=== PATIENT | female | born 1975 | race Caucasian/White ===

== ENCOUNTER → 2023-06-02 | Outpatient (CLI) | payer OTHER ==
--- NOTE | 2023-06-09 20:27 | MR ---
EXAMINATION TYPE: MR ankle RT wo con DATE OF EXAM: 06/02/2023 COMPARISON: Outside radiograph 05/19/2023 HISTORY: 47-year-old female M2 5.571, Right ankle pain, swelling, and swelling for 8 months TECHNIQUE: Multiplanar, multisequence images of the right ankle were obtained without IV contrast. FINDINGS: The tibiotalar joint intact with a small posterior effusion. There is focal osseous edema within the posterior talus but no discrete fracture line seen. No acute or healing fracture is seen. Moderate sized plantar heel spur. Minimal deep sided fraying. Thickening of 5 mm. Achilles tendon images smooth delineation. There is an os trigonum without any abnormal edema. Small to moderate effusion within the posterior s ubtalar joint. There is some edema and soft tissue replacement within the sinus Tarsi noted. Tarsal tunnel is clear. Anterior extensor tendons and syndesmosis appear intact. Prominent medial sided soft tissue swelling of the ankle. Some susceptibility artifact at the anterio r colliculus of the medial malleolus suggesting prior repair as some of the superficial anterior delt oid ligament fibers. Clinically correlate. These fibers show increased signal. The deep posterior fib ers remain intact. There is thickening and a small partial-thickness split of the posterior tibial tendon extending from just behind the malleolus to the distal segment prior to its navicular insertion spanning approximat colton 3.5 cm. There is moderate tenosynovial fluid along the from malleoli are portion. Additional mild to moderate tenosynovial fluid along the other medial flexor tendons which otherwise remain intact. Spring ligament complex appears grossly intact. There is mild thickening of the ATFL suggesting prior sprain. CFL is intact. Some edema and cystic ch arabella measuring up to 8 mm along the PTFL suggesting partial tear. Mild tenosynovitis of fluid along the lateral peroneal tendons which otherwise remain intact. IMPRESSION: 1. Focal bone bruise posterior talus. No discrete fracture is seen. 2. Edema and soft tissue replacement within the sinus tarsi could represent sprains of the sinus tars i ligaments vs sinus tarsi syndrome. 3. Moderate posterior tibial tendinosis and tenosynovitis along with a 3.5 cm long, small partial-thi ckness longitudinal tear. 4. Foci of susceptibility artifact adjacent to the anterior colliculus of the medial malleolus sugges ting possible prior repair of the anterior superficial deltoid ligament fibers. Clinically correlate. There is prominent soft tissue edema here suggesting superimposed acute sprain. The deep posterior d eltoid ligament fibers remain intact. 5. Grade 2 sprain PTFL. 6. Moderate sized plantar heel spur. Some deep sided fiber fraying at the origin of the plantar fasci a. Mild thickening of the fascial insertion up to 5 mm.
== END | disposition home or self-care (01) ==
LOC: RADMRIMAIN 14:30
PROVIDERS: ATTEND Orthopaedic Surgery
DX: M65.871 Other synovitis and tenosynovitis, right ankle and foot (principal); M77.31 Calcaneal spur, right foot; M24.871 Other specific joint derangements of right ankle, not elsewhere classified